=== PATIENT | female | born 1975 | race Caucasian/White ===

== ENCOUNTER 2017-05-25 11:42 | Emergency (ER) | payer SELFPAY ==
[2017-05-25 12:31] VITALS: BP 140/91; PULSE 98; RESP 18; TEMP 98.3; O2SAT 100
[2017-05-25 14:25] LABS: AUTOMATED NEUTROPHIL # 5.9 TH/MM3 (1.8-7.7); BASOPHIL # 0.1 TH/MM3 (0-0.2); BASOPHIL % 1.3 % (0.0-2.0); EOSINOPHIL # 0.3 TH/MM3 (0-0.4); EOSINOPHIL % 3.3 % (0.0-4.0); HEMATOCRIT 41.5 % (35.0-46.0); HEMOGLOBIN 14.3 GM/DL (11.6-15.3); LYMPH % 32.6 % (9.0-44.0); LYMPHOCYTE # 3.3 TH/MM3 (1.0-4.8); MEAN CELL VOLUME 88.9 FL (80.0-100.0); MEAN CORPUSCULAR HEMOGLOBIN 30.7 PG (27.0-34.0); MEAN CORPUSCULAR HGB CONC 34.5 % (32.0-36.0); MEAN PLATELET VOLUME 7.3 FL (7.0-11.0); MONO % 5.3 % (0.0-8.0); MONOCYTE # 0.5 TH/MM3 (0-0.9); NEUT % 57.5 % (16.0-70.0); PLATELET COUNT 350 TH/MM3 (150-450); RED BLOOD COUNT 4.67 MIL/MM3 (4.00-5.30); RED CELL DISTRIBUTION WIDTH 12.6 % (11.6-17.2); WHITE BLOOD COUNT 10.2 TH/MM3 (4.0-11.0)
[2017-05-25 14:51] LABS: ALBUMIN 3.4 GM/DL (3.4-5.0); AST (GOT) 14 U/L (15-37); BLOOD UREA NITROGEN 14 MG/DL (7-18); CALCIUM 8.6 MG/DL (8.5-10.1); CHLORIDE 106 MEQ/L (98-107); CREATININE 0.63 MG/DL (0.50-1.00); GLOMERULAR FILTRATION RATE 105 ML/MIN (>89); GLUCOSE,RANDOM 93 MG/DL (74-106); SODIUM (NA) 140 MEQ/L (136-145)
[2017-05-25 15:02] LABS: ALKALINE PHOSPHATASE 99 U/L (45-117); ALT (GPT) 21 U/L (10-53); TOTAL BILIRUBIN ADULT 0.3 MG/DL (0.2-1.0); TOTAL PROTEIN 7.2 GM/DL (6.4-8.2)
--- NOTE | 2017-05-25 16:29 | PD ---
HPI Chief Complaint: Psychiatric Symptoms Time Seen by Provider: 12:26 Travel History International Travel<30 days: No Contact w/Intl Traveler<30days: No Traveled to known affect area: No History of Present Illness HPI 42-year-old female presents to the emergency department voluntarily for psychiatric evaluation. States she has a history of bipolar disorder. She has been out of her medications. She states she has been more depressed. She is having suicidal thoughts. She has thought of plans but has no definite. She has no previous attempts. No other symptoms to report. PFSH Past Medical History Bipolar Disorder: Yes Social History Alcohol Use: No Tobacco Use: No Substance Use: No Review of Systems Except as stated in HPI: all other systems reviewed are Neg Physical Exam Narrative Well-nourished female patient with bizarre affect. She appears in no acute distress. She has even respirations. Elevated heart rate. She does move all extremities. She does speak to me clearly. Data Data Last Documented VS Vital Signs Date Time Temp Pulse Resp B/P (MAP) Pulse Ox O2 Delivery O2 Flow Rate FiO2 05/25/17 12:31 98.3 98 18 140/91 (107) 100 Orders Orders Complete Blood Count With Diff (05/25/17 12:32) Comprehensive Metabolic Panel (05/25/17 12:32) Thyroid Stimulating Hormone (05/25/17 12:32) Psych Screen (05/25/17 12:32) Drug Screen, Random Urine (05/25/17 12:32) Alcohol (Ethanol) (05/25/17 12:32) Labs Laboratory Tests Test 05/25/17 13:50 White Blood Count 10.2 TH/MM3 Red Blood Count 4.67 MIL/MM3 Hemoglobin 14.3 GM/DL Hematocrit 41.5 % Mean Corpuscular Volume 88.9 FL Mean Corpuscular Hemoglobin 30.7 PG Mean Corpuscular Hemoglobin Concent 34.5 % Red Cell Distribution Width 12.6 % Platelet Count 350 TH/MM3 Mean Platelet Volume 7.3 FL Neutrophils (%) (Auto) 57.5 % Lymphocytes (%) (Auto) 32.6 % Monocytes (%) (Auto) 5.3 % Eosinophils (%) (Auto) 3.3 % Basophils (%) (Auto) 1.3 % Neutrophils # (Auto) 5.9 TH/MM3 Lymphocytes # (Auto) 3.3 TH/MM3 Monocytes # (Auto) 0.5 TH/MM3 Eosinophils # (Auto) 0.3 TH/MM3 Basophils # (Auto) 0.1 TH/MM3 CBC Comment DIFF FINAL Differential Comment Blood Urea Nitrogen 14 MG/DL Creatinine 0.63 MG/DL Random Glucose 93 MG/DL Total Protein 7.2 GM/DL Albumin 3.4 GM/DL Calcium Level 8.6 MG/DL Alkaline Phosphatase 99 U/L Aspartate Amino Transf (AST/SGOT) 14 U/L Alanine Aminotransferase (ALT/SGPT) 21 U/L Total Bilirubin 0.3 MG/DL Sodium Level 140 MEQ/L Potassium Level 3.8 MEQ/L Chloride Level 106 MEQ/L Carbon Dioxide Level 24.0 MEQ/L Anion Gap 10 MEQ/L Estimat Glomerular Filtration Rate 105 ML/MIN Thyroid Stimulating Hormone 3rd Gen 1.540 uIU/ML Urine Opiates Screen NEG Urine Barbiturates Screen NEG Urine Amphetamines Screen NEG Urine Benzodiazepines Screen NEG Urine Cocaine Screen NEG Urine Cannabinoids Screen POS Ethyl Alcohol Level LESS THAN 3 MG/DL MDM Medical Decision Making Medical Screen Exam Complete: Yes Emergency Medical Condition: Yes Medical Record Reviewed: Yes Differential Diagnosis Mood disorder versus personality disorder versus adjustment reaction disorder Narrative Course 42-year-old female presents to emergency department voluntarily for psychiatric evaluation. Workup is initiated in triage. Patient was transferred back to the [facility] psychiatric area. I am told that the patient has left the area AMA: The risks of leaving against medical advice without further evaluation treatment were discussed with the patient. These risks include cardiac dysfunction, cardiac dysrhythmia, possible heart attack, possible stroke or . The patient indicated understanding of these risks and appeared to have the capacity to make this decision. Diagnosis Primary Impression: Depression Disposition: 07 AGAINST MEDICAL ADVICE Condition: Stable Terri Lehman May 25, 2017 16:29
== END 2017-05-25 17:00 | disposition left against medical advice (07) ==
LOC: NED 11:42
DX: F31.9 Bipolar disorder, unspecified (principal)
CPT/HCPCS: 80053; 80307; 84443; 85025; 99283